=== PATIENT | male | born 1950 | race African-American/Black ===

== ENCOUNTER 2020-09-25 12:30 | Inpatient (IN) | payer OTHER ==
[2020-09-25 13:02] VITALS: BMI 33.3
[2020-09-25] MEDS ORDERED: IBUPROFEN 400 MG TABLET (FP) PO PRN (13:39)
[2020-09-25] MEDS ORDERED: METHOCARBAMOL 500 MG TABLET PO PRN (13:39)
[2020-09-25] MEDS ORDERED: MAGNESIUM CITRATE 300 ML BOTTLE PO PRN (13:39)
[2020-09-25] MEDS ORDERED: MENTHOL/PHENOL 1 EACH UD MM PRN (13:39)
[2020-09-25] MEDS ORDERED: MAG HYDROX/AL HYDROX/SIMETH 30 ML UNIT-DOSE CUP PO PRN (13:39)
[2020-09-25] MEDS ORDERED: ONDANSETRON *ODT* 4 MG TABLET SL PRN (13:39)
[2020-09-25] MEDS ORDERED: methaDONE HCL 10 MG TABLET (FOR DETOX USE ONLY) PO ONE (13:39)
[2020-09-25] MEDS ORDERED: ACETAMINOPHEN 325 MG TABLET (FP) PO PRN ×2 (13:39)
[2020-09-25] MEDS ORDERED: MAGNESIUM HYDROX 2400MG/30ML ORAL SUSPENSION 30 ML CUP PO PRN (13:39)
[2020-09-25] MEDS ORDERED: cloNIDine HCL 0.1 MG TABLET PO PRN (13:39)
[2020-09-25] MEDS ORDERED: BISMUTH SUBSALICYLATE 262 MG/15 ML BTL PO PRN (13:39)
[2020-09-25] MEDS ORDERED: clonazePAM 0.5 MG ODT TABLETS SL PRN (13:39)
[2020-09-25] MEDS: hydrOXYzine PAMOATE 25 MG CAPSULE (FP) PO SCH ×3 (16:41→22:50)
[2020-09-25] MEDS: MELATONIN 5 MG TABLETS PO SCH (22:50)
[2020-09-25] MEDS: THIAMINE HCL 100 MG TABLET (FP) PO SCH (22:50)
[2020-09-26] MEDS: hydrOXYzine PAMOATE 25 MG CAPSULE (FP) PO SCH ×5 (08:20→23:15)
[2020-09-26] MEDS ORDERED: methaDONE HCL 10 MG TABLET (FOR DETOX USE ONLY) ONE (08:28)
[2020-09-26] MEDS: PRENATAL VITAMINS W/ FOLIC ACID TABLET (FP) PO SCH (10:44)
[2020-09-26] MEDS: MELATONIN 5 MG TABLETS PO SCH (23:15)
[2020-09-26] MEDS: THIAMINE HCL 100 MG TABLET (FP) PO SCH (23:15)
[2020-09-27] MEDS: hydrOXYzine PAMOATE 25 MG CAPSULE (FP) PO SCH ×2 (06:23→10:47)
[2020-09-27] MEDS ORDERED: methaDONE HCL 10 MG TABLET (FOR DETOX USE ONLY) PO ONE (10:00)
[2020-09-27 10:11] VITALS: BP 130/75; PULSE 84; TEMP 96.4
[2020-09-27] MEDS: PRENATAL VITAMINS W/ FOLIC ACID TABLET (FP) PO SCH (10:47)
[2020-09-29] MEDS ORDERED: methaDONE HCL 10 MG TABLET (FOR DETOX USE ONLY) PO ONE (10:00)
== END 2020-09-27 14:28 | disposition left against medical advice (07) | DRG 894 ==
LOC: YASAS 12:30 → Y3N 14:21
PROVIDERS: ADMIT Allergy & Immunology; ATTEND Allergy & Immunology
PROC: HZ2ZZZZ Detoxification Services for Substance Abuse Treatment (ICD-10-PCS; principal; 2020-09-25)
DX: F11.23 Opioid dependence with withdrawal (principal); F14.20 Cocaine dependence, uncomplicated; F17.210 Nicotine dependence, cigarettes, uncomplicated; I10 Essential (primary) hypertension; B18.2 Chronic viral hepatitis C; M19.90 Unspecified osteoarthritis, unspecified site; Z86.718 Personal history of other venous thrombosis and embolism
CPT/HCPCS: 93005; 93010; C9803; U0003; U0005